=== PATIENT | male | born 1975 | race Caucasian/White ===

== ENCOUNTER 2017-09-24 18:36 | Emergency (ER) | payer SELFPAY ==
[~2017-09-24 18:36] MED LIST: ANUHCS PR; ARI10 PO; ARIP15TA9 PO; ATOR40TA24 PO; DIAZ-305 PO; FLUO40CA76 PO; HCTZ25 PO; HIGH CHOLESTEROL MED; HTN MED; NEOM1PAC11 TP; NIC10R INH; PROM-110 PO; SLEEPING PILL
--- NOTE | 2017-09-24 18:50 | ER Report ---
History and Physical Time Seen By MD: 18:38 Hx. of Stated Complaint: PT WAS LOADING SOME CARPET OUT OF A POOL AND FELL DOWN AND HURT RIGHT SIDE OF RIBS. PT ALSO HIT HEAD. HPI/ROS CHIEF COMPLAINT: Right rib injury, head injury HISTORY OF PRESENT ILLNESS: Patient is a 41-year-old male who presents the ED with a complaint of a right rib and head injury after he was lifting some carpet padding above his head and fell onto some concrete. He states that he hit the right side of his ribs and also the right fore head area. He denies any LOC. He has not noted any nausea or vomiting. He does admit to drinking today stating that he's only had one beer. He states that he is HIV positive. He has noted a abrasion to his right side and this is painful. He states he has pain with taking depressed. Has not taken anything for the pain. He has not applied ice to his injuries. He denies any dizziness. He has not noted any neck pain. REVIEW OF SYSTEMS: Constitutional: No fever, no chills. Eyes: No discharge. ENT: No sore throat. Cardiovascular: See history of present illness. No palpitations. Respiratory: No cough, no shortness of breath. Gastrointestinal: No abdominal pain, no vomiting. Genitourinary: No hematuria. Musculoskeletal: History of present illness. Skin: No rashes. Neurological: See history of present illness. Allergies: Coded Allergies: iodine (Verified Allergy, Intermediate, 09/24/17) latex (Verified Allergy, Intermediate, HIVES, 09/24/17) Home Meds Discontinued Reported Medications Nicotine (NICOTROL) 10 Mg/Inh Ctr, 10 MG INH PRN Y for NICOTINE REPLACEMENT 02/05/17 Neomy Sulf/Bacitra/Polymyxin B (TRIPLE ANTIBIOTIC OINTMENT) 1 Each Packet, 1 EACH TP DAILY, PACKET 02/05/17 Reviewed Nurses Notes: Yes Old Medical Records Reviewed: Yes Hx Smoking: Yes Smoking Status: Current: Every Day Smoker Exposure to Second Hand Smoke?: Yes Hx Substance Use Disorder: No Hx Alcohol Use: Yes Constitutional Vital Sign - Last 24 Hours 09/24/17 18:42 Temp 98.7 Pulse 95 Resp 22 B/P (MAP) 130/83 Pulse Ox 95 O2 Delivery Room Air Physical Exam General Appearance: The patient is alert, has no immediate need for airway protection and no signs of toxicity. Patient appears to be no acute distress. Eyes: Pupils equal and round no pallor or injection. Patient is having difficulty with EOMs. He does have some bilateral horizontal nystagmus. ENT, Mouth: Mucous membranes are moist. Respiratory: There are no retractions, lungs are clear to auscultation. Cardiovascular: Regular rate and rhythm. Gastrointestinal: Abdomen is soft and non tender, no masses, bowel sounds normal. Neurological: Cranial nerves II through XII are intact but having trouble with EOMs. Normal Romberg. Skin: Warm and dry, no rashes. Musculoskeletal: Neck is supple non tender. Extremities are nontender, nonswollen and have full range of motion. DIFFERENTIAL DIAGNOSIS: After history and physical exam differential diagnosis was considered for head injury including but not limited to concussion, skull fracture, intraparenchymal contusion, subarachnoid, subdural and epidural hematoma. Medical Decision Making EKG/Imaging Imaging Right Rib with PA Chest Xrays: IMPRESSION: 1. No radiographic evidence of acute cardiopulmonary disease. 2. Irregular appearance of the right 10th anterolateral rib could be projectional or an acute nondisplaced fracture. Report Dictated By: Julia Voss MD at 09/24/2017 7:29 PM Report E-Signed By: Julia Voss MD at 09/24/2017 7:[address] Head: IMPRESSION: 1. No acute fracture, hemorrhage or intracranial mass lesion. No CT evidence of acute infarct. 2. Moderate nonspecific white matter disease is unchanged. This could be due to sequela of chronic migraine headaches, previous inflammation or trauma. Changes from chronic HIV infection are in the differential. 3. 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 Report Dictated By: Julia Voss MD at 09/24/2017 7:19 PM Report E-Signed By: Julia Voss MD at 09/24/2017 7:22 PM ED Course/Re-evaluation ED Course Will obtain labs, right rib x-rays, CT of the head. Patient does have missed some nystagmus on exam and this is likely due to alcohol intoxication. He does smell of alcohol and appears to be intoxicated. He is admitting to drinking alcohol today. 09/24/2017 7:45:49 pm - discussed imaging with patient. He does appear that he might have a right 10th rib fracture. He is comfortable does take Tylenol or ibuprofen for pain relief. He does have some chronic changes noted on the CT scan which may be HIV related. He states that he is going to see a HIV doctor in [place] soon. Decision to Disposition Date: Sep 24, 2017 Decision to Disposition Time: 19:46 Depart Departure Latest Vital Signs Vital Signs Date Time Temp Pulse Resp B/P (MAP) Pulse Ox O2 Delivery O2 Flow Rate FiO2 09/24/17 18:42 98.7 95 22 130/83 95 Room Air Impression: Primary Impression: Right rib fracture Condition: Improved Disposition: HOME OR SELF-CARE New Scripts No Active Prescriptions or Reported Meds Patient Instructions: Rib Fracture (ED) Additional Instructions: Rest, ice. Follow-up with primary care provider in 2-3 days. If having worsening or concerning symptoms my return the Emergency Department. May take Tylenol or ibuprofen for pain relief. Problem Qualifiers Primary Impression: Right rib fracture Encounter type: initial encounter Rib fracture type: single rib Fracture type: closed Qualified Codes: S22.31XA - Fracture of one rib, right side, initial encounter for closed fracture CRISTINA MARQUEZ PA-C Sep 24, 2017 18:50
--- NOTE | 2017-09-24 19:25 | RADIOLOGY IMAGING REPORT ---
FACILITY: [facility] PATIENT NAME: Clark Resendez : 1975 MR: [id number] V: [id number] EXAM DATE: ORDERING PHYSICIAN: CRISTINA MARQUEZ TECHNOLOGIST: Location: [facility] [place] Patient: Clark Resendez : 1975 Visit/Account:[id number] Date of Sevice: 09/24/2017 EXAMINATION: CT head without IV contrast HISTORY: Head injury, intoxicated. COMPARISON: CT head from 11/02/2016. TECHNIQUE: Contiguous axial images were obtained from the skull base to the vertex without intraven ous contrast. Sagittal and coronal reformatted images are also submitted. One of the following dose optimization techniques was utilized in the performance of this exam: Autom ated exposure control; adjustment of the mA and/or kV according to the patient's size; or use of an i terative reconstruction technique. Specific details can be referenced in the facility's radiology C T exam operational policy. FINDINGS: Brain volume: Mild generalized atrophy with associated concordant prominence of the ventricular syst em. Ventricles: Normal. Acute ischemic changes: None. Hemorrhage: No acute intracranial hemorrhage. Masses/edema: None. Lopes-white: Negative. White matter: Patchy hypodensities in the deep white matter bilaterally. Vessels: Calcified plaque of both carotid siphons. Extra-axial: Negative. Calvarium/scalp: No acute fracture. Skull base/visualized face: Negative. Visualized sinuses/orbits: Partial bilateral ethmoidectomies. The right maxillary sinus is small com pared to the left with diffuse mucoperiosteal thickening, unchanged. IMPRESSION: 1. No acute fracture, hemorrhage or intracranial mass lesion. No CT evidence of acute infarct. 2. Moderate nonspecific white matter disease is unchanged. This could be due to sequela of chronic mi graine headaches, previous inflammation or trauma. Changes from chronic HIV infection are in the diff erential. 3. 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 Report Dictated By: Julia Voss MD at 09/24/2017 7:19 PM Report E-Signed By: Julia Voss MD at 09/24/2017 7:22 PM WSN:[id number]
--- NOTE | 2017-09-24 19:38 | RADIOLOGY IMAGING REPORT ---
FACILITY: [facility] - [place] PATIENT NAME: Clark Resendez : 1975 MR: [id number] V: [id number] EXAM DATE: ORDERING PHYSICIAN: CRISTINA MARQUEZ TECHNOLOGIST: Location: [facility] - [place], [place] Patient: Clark Resendez : 1975 Visit/Account:[id number] Date of Sevice: 09/24/2017 EXAMINATION: Chest radiographs 2 views Right rib radiographs 2 views HISTORY: Head injury, intoxicated, right rib pain. COMPARISON: Chest radiograph from 11/02/2016. FINDINGS: PA and lateral views of the chest, AP and oblique views of the right ribs are submitted. Lines/tubes: None. Lungs/pleura: No focal consolidation or pleural effusion. Heart: Negative. Mediastinum: Negative. Bony structures/body wall: There is a slightly irregular appearance of the right 10th anterolateral rib, which is near the BB marker. There are no displaced right rib fractures. Old healed right distal clavicle fracture. IMPRESSION: 1. No radiographic evidence of acute cardiopulmonary disease. 2. Irregular appearance of the right 10th anterolateral rib could be projectional or an acute nondisp laced fracture. Report Dictated By: Julia Voss MD at 09/24/2017 7:29 PM Report E-Signed By: Julia Voss MD at 09/24/2017 7:35 PM WSN:[id number]
--- NOTE | 2017-09-24 19:39 | RADIOLOGY IMAGING REPORT ---
FACILITY: [facility] PATIENT NAME: Clark Resendez : 1975 MR: [id number] V: [id number] EXAM DATE: ORDERING PHYSICIAN: CRISTINA MARQUEZ TECHNOLOGIST: Location: [facility] Patient: Clark Resendez : 1975 Visit/Account:[id number] Date of Sevice: 09/24/2017 EXAMINATION: Chest radiographs 2 views Right rib radiographs 2 views HISTORY: Head injury, intoxicated, right rib pain. COMPARISON: Chest radiograph from 11/02/2016. FINDINGS: PA and lateral views of the chest, AP and oblique views of the right ribs are submitted. Lines/tubes: None. Lungs/pleura: No focal consolidation or pleural effusion. Heart: Negative. Mediastinum: Negative. Bony structures/body wall: There is a slightly irregular appearance of the right 10th anterolateral rib, which is near the BB marker. There are no displaced right rib fractures. Old healed right distal clavicle fracture. IMPRESSION: 1. No radiographic evidence of acute cardiopulmonary disease. 2. Irregular appearance of the right 10th anterolateral rib could be projectional or an acute nondisp laced fracture. Report Dictated By: Julia Voss MD at 09/24/2017 7:29 PM Report E-Signed By: Julia Voss MD at 09/24/2017 7:35 PM WSN:[id number]
[2017-09-24 20:00] VITALS: BP 132/85
== END 2017-09-24 20:07 | disposition home or self-care (01) ==
LOC: ER 18:42
DX: S22.31XA Fracture of one rib, right side, initial encounter for closed fracture (principal); B20 Human immunodeficiency virus [HIV] disease; F17.210 Nicotine dependence, cigarettes, uncomplicated; F10.120 Alcohol abuse with intoxication, uncomplicated; W18.30XA Fall on same level, unspecified, initial encounter
CPT/HCPCS: 70450; 71046; 71100; 99285